=== PATIENT | female | born 1985 | race Caucasian/White ===

== ENCOUNTER → 2021-12-03 | Day surgery (SDC) | payer OTHER ==
[~2021-12-03] VITALS: Ht 154.9 cm; Wt 51.7 kg
[~2021-12-03] MED LIST: CARAFATE1 GM PO; CLONAZEPAM 1MG T1 MG PO; PEPCID AC20 M1 PO; PROTONIX 40MG T40 MG PO; TRAZODONE 100M100 MG PO; VRAYLAR3 MG PO
[2021-12-03 06:54] LABS: HCG (URINE) SCREEN NEGATIVE (NEGATIVE)
[2021-12-03 07:54] LABS: EOSINOPHIL 1.9 % (0-5); HGB 12.6 g/dl (12.5-16.0); LYMPHOCYTE 20.3 % (15-48); MCH 26.3 pg (25.0-31.0); MCHC 31.5 g/dL (32.0-36.0); MCV 83.3 fL (78.0-100.0); MPV 9.2 fL (6.0-9.5); NEUTROPHIL 70.5 % (41-80); NRBC 0; PLT 444 K/uL (150-400); RDW 20.3 % (11.5-14.0); WBC 12.6 K/uL (4.0-10.5)
== END | disposition home or self-care (01) ==
LOC: FAS 06:25
PROVIDERS: Oral & Maxillofacial Surgery
DX: K02.9 Dental caries, unspecified (principal); K04.7 Periapical abscess without sinus; F41.9 Anxiety disorder, unspecified; K27.9 Peptic ulcer, site unspecified, unspecified as acute or chronic, without hemorrhage or perforation
CPT/HCPCS: D7140; D7210; D7310; 36415; 84703; 85025; J1100; J1170; J2001; J2250; J2704; J3010; J7120